=== PATIENT | male | born 1995 | race Hispanic/Latino ===

== ENCOUNTER 2022-12-24 04:38 | Emergency (ER) | payer BC, SELFPAY ==
--- OUTSIDE RECORDS SUMMARY | 2022-12-24 04:41 | XMS REPORT | Continuity of Care Document ---
:1995 Author Organization [facility] t Address [address] [facility] [address] [place] [id number] Care Team Providers Name Role Phone Connie Craft Primary Care Physician Dave Mcarthur MD Attending Clinician Constantino Burger Attending Clinician Unavailable CONNIE ABDULLAHI Attending Clinician Unavailable NATHALIE BISWAS Attending Clinician Unavailable Only, Ang Db Test Attending Clinician Unavailable Nathalie Biswas MD Attending Clinician Doctor Unassigned, [place] Attending Clinician Unavailable Jovana King Attending Clinician Unknown, Attending Attending Clinician Unavailable UNKNOWN, ATTENDING Attending Clinician Unavailable Jessy Moise RN Attending Clinician Unavailable ELSA RIGGINS Attending Clinician Unavailable Elsa Riggins MD Attending Clinician Shefali Cain RN Attending Clinician Unavailable ELSA RIGGINS Admitting Clinician Unavailable Payers Payer Name Policy Type Policy Number Effective Date Expiration Date S zayda [facility] [id number] 2020 00:00:00 Problems Condition Condition Condition Status Onset Resolution Last Treating Co mments Source Name Details Category Date Date Treatment Clinician Date No known No known Disease Unive rs active active ity of problems problems [facility] Allergies, Adverse Reactions, Alerts Allergy Allergy Status Severity Reaction(s) Onset Inactive Treating Comm ents Source Name Type Date Date Clinician NO KNOWN Drug Active Univers ALLERGIE Class [facility] Social History Social Habit Start Date Stop Date Quantity Comments Source Sexual orientation [facility] History of tobacco Occasional [facility] tobacco smoker Hospital History of Social 2022-05-07 2022-05-[address] function 00:00:00 00:00:00 Hospital Tobacco use and 2022-05-07 2022-05-07 Smokeless tobacco [facility] exposure 00:00:00 00:00:00 non-user Hospital Alcohol intake 2022-05-07 2022-05-07 Current drinker [facility] 00:00:00 00:00:00 of alcohol Hospital (finding) Exposure to 2021-01-16 2021-02-15 Not sure University of SARS-CoV-2 (event) 00:00:00 09:20:00 [facility] Sex Ass[birth year] At [birth year] [employer] [facility] 00:00:00 00:00:00 Hospital Smoking Status Start Date Stop Date Source Unknown if ever smoked [facility] Occasional tobacco smoker 2022-05-07 00:00:00 [facility] Light tobacco smoker 2020-10-19 00:00:00 [facility] Medications Ordered Filled Start Stop Current Ordering Indication Dosage Frequency Signature Comments Components Source Medication Medication Date Date Medication? Clinician (SIG) Name Name bev Yes [id number] 1{tbl} Q6H Take 1-2 Methodi en-codeine 3-[address] (TYLENOL 00:00: mouth Hospita WITH 00 every 6 l CODEINE #3) (six) 300-30 mg hours as per tablet needed for moderate pain .acute pain. naproxen Yes [id number] 500mg Take 1 Univers 500 mg 8-24 105 tablet by ity of tablet 00:00: mouth (two) Medical times Branch daily with meals. naproxen Yes [id number] 500mg Take 1 Univers 500 mg 8-24 105 tablet by ity of tablet 00:00: mouth (two) Medical times Branch daily with meals. naproxen Yes [id number] 500mg Take 1 Univers 500 mg 8-24 105 tablet by ity of tablet 00:00: mouth (two) Medical times Branch daily with meals. naproxen Yes [id number] 500mg Take 1 Univers 500 mg 8-24 105 tablet by ity of tablet 00:00: mouth 2 [place] (two) Medical times Branch daily with meals. naproxen Yes [id number] 500mg Take 1 Univers 500 mg 8-24 105 tablet by ity of tablet 00:00: mouth 2 [place] 00 (two) Medical times Branch daily with meals. naproxen Yes [id number] 500mg Take 1 Univers 500 mg 8-24 105 tablet by ity of tablet 00:00: mouth 2 [place] (two) Medical times Branch daily with meals. Immunizations Ordered Filled Date Status Comments Source Immunization Name Immunization Name TDAP 2020-10-19 Completed [facility] 00:00:00 [facility] TDAP 2020-10-19 Completed University 00:00:00 [facility] TDAP 2020-10-19 Completed [facility] 00:00:00 [facility] TDAP 2020-10-19 Completed [facility] 00:00:00 [facility] TDAP Unknown Completed [facility] TDAP Unknown Completed [facility] Vital Signs Vital Name Observation Time Observation Value Comments Source Systolic blood 2020-11-01 19:23:00 142 mm[Hg[facility] 2020-11-01 19:23:00 93 [facility]Hg[facility] 2020-11-01 19:23:00 72 /min [facility] Body temperature 2020-11-01 19:23:00 36.83 Magali [facility] Respiratory rate 2020-11-01 19:23:00 18 /min [facility] Body weight 2020-11-01 19:23:00 100.971 kg [facility] BMI 2020-11-01 19:23:00 33.85 kg/m2 [facility] Oxygen saturation in 2020-11-01 19:23:00 98 /min [facility] Arterial blood by [facility] Pulse oximetry Branch Systolic blood 2020-10-26 15:15:00 129 mm[Hg[facility] Di[facility] blood 2020-10-26 15:15:00 82 mm[Hg] Unive rsity of pressure [facility] Heart rate 2020-10-26 15:15:00 71 /min Universi ty of [facility] Body temperature 2020-10-26 15:15:00 36.72 Magali Univ ersity of [facility] Respiratory rate 2020-10-26 15:15:00 16 /min Univ ersity of [facility] Body height 2020-10-26 15:15:00 172.7 cm Universi ty of [place] [facility] Body weight 2020-10-26 15:15:00 100.699 kg Universi ty of [facility] BMI 2020-10-26 15:15:00 33.75 kg/m2 Universi ty [facility] Oxygen saturation in 2020-10-26 15:15:00 99 /min University of Arterial blood by [facility] mohini Pulse oximetry Branch Systolic blood 2020-05-17 14:24:00 145 mm[Hg] Univer sity of pressure [facility] Diastolic blood 2020-05-17 14:24:00 99 mm[Hg] Unive rsity of pressure [facility] Heart rate 2020-05-17 14:24:00 92 /min Universi ty [facility] Respiratory rate 2020-05-17 14:24:00 24 /min [facility] Oxygen saturation in 2020-05-17 14:24:00 99 /min University of Arterial blood by [facility] Pulse oximetry Branch Body temperature 2020-05-17 12:05:00 36.94 Magali Univ ersity [facility] Body weight 2020-05-17 12:05:00 102.059 kg Universi ty [facility] Body height 2022-05-07 13:24:00 175.3 cm [facility] Body weight 2022-05-07 13:24:00 99.791 kg [facility] BMI 2022-05-07 13:24:00 32.49 kg/m[facility] Systolic blood 2022-05-07 13:21:49 143 mm[Hg] [facility] pressure Diastolic blood 2022-05-07 13:21:49 101 mm[Hg] [facility] pressure Heart rate 2022-05-07 13:21:49 89 /min [facility] Body temperature 2022-05-07 13:21:49 36.5 Magali [facility] Respiratory rate 2022-05-07 13:21:49 18 /min [facility] Oxygen saturation in 2022-05-07 13:21:49 96 /min [facility] Arterial blood by Pulse oximetry Procedures Procedure Date / Time Performing Clinician Source Performed XR TIBIA FIBULA 2 VW 2022-05-07 13:43:47 McarthurDave [facility] LEFT XR ANKLE 3+ VW RIGHT 2020-10-26 15:43:00 Jovana Segura [facility] ASSIGNMENT OF BENEFITS 2020-10-19 15:05:02 Doctor Unassigned, Cassie [facility] Name [facility] Branch URINALYSIS 2020-05-17 13:46:00 Gilson [facility] ADC / LCC - DRUG SCREEN 2020-05-17 13:46:00 Gilson [facility] XR CHEST 1 VW 2020-05-17 12[facility]54[facility] 2020-05-17 12:26[facility]EL 2020-05-17 12:26:00 Elsa Riggins [facility] ([id number]) (ALB,T.PRO,BILI [facility] T,BU/BC,ALT,AST,ALK PHOS) BASIC METABOLIC PANEL 2020-05-17 12:26:00 Elsa Riggins [facility] (NA, K, CL, CO2, Medical Branch GLUCOSE, BUN, CREATININE, CA) CBC WITH DIFF 2020-05-17 12:26[facility] / INR 2020-05-17 12:26:00 Elsa Riggins [facility] D-DIMER 2020-05-17 12:26:[facility] ACTIVATED PARTIAL 2020-05-17 12:26:00 Gilson [facility] THRMPLAS LEXY [facility] Er N-TERMINAL PRO-BNP 2020-05-17 12:26:00 Elsa Riggins [facility] COVID-19 (ID NOW RAPID 2020-05-17 12:26:00 Elsa Riggins [facility] Plan of Care Planned Activity Planned Date Details Comments Source Future Scheduled 2022-12-17 COVID-19 VACCINE (#1) [facility] Test 18:32:55 [code = COVID-19 VACCINE (#1)] Future Scheduled 2022-12-17 Pneumococcal Vaccine: [facility] Test 18:32:55 Pediatrics (0 to 5 Years) and At-Risk Patients (6 to 64 Years) (1 - PCV) [code = Pneumococcal Vaccine: Pediatrics (0 to 5 Years) and At-Risk Patients (6 to 64 Years) (1 - PCV)] Future Scheduled 2022-12-17 Hepatitis C screening [facility] Test 18:32:55 (procedure) [code = 814557939] Future Scheduled 2022-12-17 INFLUENZA VACCINE (#1) [facility] Test 18:32:55 [code = INFLUENZA VACCINE (#1)] Future Scheduled 2022-12-17 RSV VACCINES > 60 YR [facility] Test 18:32:55 (1 - 1-dose 60+ series) [code = RSV VACCINES > 60 YR (1 - 1-dose 60+ series)] Encounters Start End Encounter Admission Attending Care Care Encounter Source Date/Time Date/Time Type Type Clinicians Facility Department ID 2021-12-01 Outpatient CHW CHW [id number] [facility] 12:47:07 0601 [facility] 2022-05-07 2022-05-07 Emergency Dave Mcarthur 1.2.840.1 [id number] Methodi 07:23:00 08:07:[address] 3.430.2.7 Hospit a .3.937073 l .8 2022-05-07 2022-05-07 Emergency DAVE MCARTHUR [facility] [id number] [place] 00:00:00 00:00:[address] 2022-05-07 2022-05-07 Travel 1.2.840.1 [id number] [id number] Methodi 00:00:00 00:00:[address] 3.430.2.7 0.2.7.3.698 Ho spita .3.383256 084.8 l .8 2021-08-03 2021-08-03 Outpatient DANNY Burger CHW [id number] [facility] 00:00:00 00:00:00 [facility] 2021-05-31 2021-05-31 Outpatient R [facility] [id number] Univers 08:00:00 08:00:00 CONNIE ity [facility] 2021-02-15 2021-02-15 Outpatient R [facility] [id number] Univers 09:00:00 09:36:15 NATHALIE zamudio [facility] 2021-02-15 2021-02-15 Laboratory Only, Ang Db Test [facility] 1.2.8 40.114 [id number] Univers 09:14:49 09:29:49 [facility] 350.1.13.10 ity of [place] 4.2.7.2.686 Fidel as MARCELL?BLEA [phone] [address] MEDICAL OFFICE [facility] 2020-11-01 2020-11-01 [facility] 1.2.840.114 [id number] Univers 14:00:17 14:20:17 Care [facility] 350.1.13.10 it y of [place] 4.2.7.2.686 Fidel as Marcell?Blea [phone] [address] Medical Office [facility] 2020-11-01 2020-11-01 Outpatient R [facility] [id number] Univers 14:00:00 14:00:00 NATHALIE [facility] 2020-10-28 2020-10-28 Patient Doctor CONOR 1.2.840.114 [id number] Univers 00:00:00 00:00:00 Secure Msg Unassigned, NETO 350.1.13.10 ity of [place] [facility] 4.2.7.2.686 Fidel as [phone] [address] 2020-10-26 2020-10-26 [facility] 1.2.506.763 [id number] Univers 10:24:59 23:59:00 Encounter [facility] 350.1.13.10 ity of [place] 4.2.7.2.686 Fidel as Marcell?Blea [phone] [facility] [address] Medical Office [facility] 2020-10-26 2020-10-26 Urgent Jovana Segura [facility] 1.2.840. 114 [id number] Univers 09:39:24 11:08:36 Care Unknown, Attending Health 350.1.13.10 ity of [place] 4.2.7.2.686 Fidel as Marcell?Blea [phone] [facility] [address] Medical Office [facility] 2020-10-26 2020-10-26 Outpatient R RICKI[facility] [id number] Univers 09:40:00 09:40:00 ATTENDING ity of [facility] 2020-10-26 2020-10-26 Patient Doctor CONOR 1.2.840.114 [id number] Univers 00:00:00 00:00:00 Secure Msg Unassigned, NTEO 350.1.13.10 ity of [place] [facility] 4.2.7.2.686 Fidel as [phone] [address] 2020-10-19 2020-10-19 Outpatient R [facility] [id number] Univers 10:00:00 10:00:00 CONNIE ity of [facility] 2020-10-19 2020-10-19 Orders Doctor CONOR 1.2.840.114 [id number] Univers 00:00:00 00:00:00 Only Unassigned, NETO 350.1.13.10 ity of [place] [facility] 4.2.7.2.686 Fidel as [phone] [address] 2020-05-18 2020-05-18 Letter CONOR Moise 1.2.840.114 [id number] Univers 00:00:00 00:00:00 (Out) Jessy DUQUE 350.1.13.10 it y of HOSPITAL 4.2.7.2.686 Fidel as [phone] [facility] [address] 2020-05-17 2020-05-17 Emergency X GILSON, [facility] ERT [id number] Univers 07:06:00 09:56:00 ELSA zamudio of [facility] 2020-05-17 2020-05-17 Emergency Gilson, KVNG 1.2.356.276 [id number] Univers 07:06:00 09:56:00 Elsa Valdez 350.1.13.10 i ty of [place] 4.2.7.2.686 [facility] [id number] [facility] 084 Branch 2020-05-17 2020-05-17 Telephone CONOR Cain 1.2.662.971 [id number] Univers 00:00:00 00:00:00 Shefali DUQUE 350.1.13.10 i ty of [facility] 4.[address].7.[address] [place] [address] [phone] [facility] [address] [place] Results Test Description Test Time Test Comments Results Result [facility] e Comments XR ANKLE 3+ VW 2020-10-04 No acute University of RIGHT 4 abnormality of the [facility] 18:05:25 right ankle. RL: Branch 1105 Patient name: FALLON SORTOOB: 1995 25 years EXAMINATION: XR ANKLE 3+ VW RIGHT Ordering Physician: JOVANA SEGURA CLINICAL HISTORY:twisted ankle while walking on Sunday. COMPARISON:None TECHNIQUE:Frontal, oblique, and lateral views of the right ankle performed. FINDINGS:Normal bone mineralization. No fracture or dislocation. No osseous lesions.No joint space narrowing. No joint effusion identified. Soft tissues arenormal. [facility], Radiant Results Inft User - 10/26/2020 1:06 PM CDT Patient name: FALLON SORTOOB: 1995 25 years EXAMINATION: XR ANKLE 3+ VW RIGHTOrdering Physician: JOVANA SEGURA CLINICAL HISTORY:twisted ankle while walking on Sunday. COMPARISON:NoneTECH NIQUE:Frontal, oblique, and lateral views of the right ankle performed.FINDINGS: Normal bone mineralization. No fracture or dislocation. No osseous lesions.No joint space narrowing. No joint effusion identified. Soft tissues arenormal. IMPRESSIONNo acute abnormality of the right ankle.RL: 1105 ALYSIS 2020-05-17 14:17:45 Test Item Value Reference Range Interpretation Comme nts APPEARANCE (test code = Clear Clear 6036607103) COLOR (test code = 1829857054) Yellow Yellow PH (test code = 6407228549) 4.8-8.0 SP GRAVITY (test code = 1.003-1.030 8430594711) GLU U QUAL (test code = Normal Normal 9684676844) BLOOD (test code = 7473864061) Negative Negative KETONES (test code = 8220212634) 20 mg/dL Negative A PROTEIN (test code = 2887-8) Negative Negative UROBILIN (test code = 4.0 mg/dL Normal A 6767663479) BILIRUBIN (test code = Negative Negative 4354859779) NITRITE (test code = 2561130622) Negative Negative LEUK CARLIE (test code = Negative Negative 1796520870) RBC/HPF (test code = 9554263896) <1 See_Comment [Automated message] The system which ge nerated this result transmit taryn reference range: 0 - 3 HP F. The reference range was not used to interpret th is result as normal/abnormal . WBC/HPF (test code = 2069370046) <1 See_Comment [Automated message] The system which ge nerated this result transmit taryn reference range: 0 - 5 HP F. The reference range was not used to interpret th is result as normal/abnormal . BACTERIA (test code = Negative Negative 9624319401) MUCOUS (test code = 0898678243) Slight Negative LPF A Lab Interpretation (test code = Abnormal 11332-8) [facility] / [facility] - DRUG SCREEN [id number] 14:14:50 Test Item Value Reference Range Interpretation Comments BENZO U (test code = Negative Negative 6893646590) SHANNEN U (test code = Negative Negative 2138055169) AMPHET (test code = Negative Negative 3010989416) THC (test code = Negative Negative 9409615191) METHADONE (test code = Negative Negative 7149811432) Meth U (test code = Negative Negative 1300650424) OPIATES (test code = Negative Negative 5570005781) Cocaine Metabolite (test Negative Negative code = 6812140423) PROPOXY (test code = Negative Negative 9084461893) Tric U (test code = Negative Negative 8731203092) PCP (test code = Negative Negative 9397151822) OXYCOD (test code = Negative Negative 1245379386) JANET (test code = JANET) Urine Drug Cutoff Ranges Benzodiazepines: ? ? 150 ng/mLBarbiturates: ?200 ng/mLAmphetamine: ? 500 ng/mLCannabinoids: ?50 ?ng/mLMethadone: ? 200 ng/mLMethamphetamine: ? ? 500 ng/mL Opiates: ? 100 ng/mL or 2000 ng/mLCocaine: ? 150 ng/mLPropoxyphene: ?300 ng/mLTricyclics: ?300 ng/mLOxycodone: ? 100 ng/mLPCP: ? 25 ?ng/mL The results are to be used only for medical (i.e., treatment) purposes. Unconfirmed screening results must not be used for non-medical purposes (e.g., employment testing, legal testing). Lab Interpretation (test Normal code = 48323-5) [facility] 1 [id number] 13:46:26 No acute cardiopulmonary abnormality. Preliminary Report Dictated by Resident: Taqueria Moyer MD., have reviewed this study and agree with the abovereport.EXAM: XR CHEST 1 VW 05/17/2020 7:35 AM HISTORY: 24 years-old Female with dyspnea . TECHNIQUE: Portable AP view of the chest. COMPARISON: None. FINDINGS: Cardiomediastinal: The cardiomediastinal silhouette is unremarkable. Lungs and pleura: The lungs are clear. No focal consolidation,pneumothorax, or pleural effusion is seen. Musculoskeletal: No acute skeletal abnormality. [facility], Radiant Results Inft User - 05/17/2020 8:47 AM CDTEXAM: XR CHEST 1 VW 05/17/2020 7:35 AMHISTORY: 24 years-old Female with dyspnea .TECHNIQUE: Portable AP view of the chest. COMPARISON: None.FINDINGS: Cardiomediastinal: The cardiomediastinal silhouette is unremarkable.Lungs and pleura: The lungs are clear. No focal consolidation,pneumothorax, or pleural effusion is seen.Musculoskeletal: No acute skeletal abnormality.IMPRESSIONNo acute cardiopulmonary a bnormality.Preliminary Report Dictated by Resident: Memo Slade, Taqueria Alford MD., have reviewed this study and agree with the abovereport.[id number] 13:45:01 Test Item Value Reference Interpretation Comments Range D-DIMER (test code = <0.27 See_Comment [Autom ated 2275672547) message] The system which generated this result transmitted reference range : <0.41 ?g/mL (FEU). The reference range was not used to interpret this result as normal/abnormal . JANET (test code = This test may be JANET) used in conjunction with a clinical pretest probability (PTP) assessment model to exclude venous thromboembolism (VTE) in patients suspected of deep venous thrombosis (DVT) and pulmonary embolism (PE) A D-Dimer value less than 0.50 ?g/ml (FEU) has a negative predicative value of 96 to 100% (95% CI)and 97 to 100% (95% CI) as an aid in the diagnosis of deep vein thrombosis (DVT) and pulmonary embolism when there is low or moderate pretest probability of PE or DVT. D-Dimer values are expressed in initial fibrinogen equivalent units (FEU)" The assay results should be used with other information, including the clinical context, in forming a diagnosis. Lab Interpretation Normal (test code = 94627-5) [facility] Hospital[facility] [id number] 13:14:24 Test Item Value Reference Range Interpretation Comments TROPONIN I (test 0.017 ng/mL See_Comment [Automated code = 0315828556) message] The system which generated this result transmitted reference range : <=0.034. The reference range was not used to interpret this result as normal/abnormal . JANET (test code = Equal or Less than JANET) 0.034 ng/ml---Normal ?Note: Cardiac troponin begins to rise 3-4 hours after the onset of ischemia. Repeat in 4-6 hours if the sample was drawn within 3-4 hours of the onset of the symptom and found normal. Between 0.035 and 0.120 ng/mL--- Borderline. Questionable myocardial injury or necrosis ? ?Note: Serial measurement may be necessary to confirm or exclude the diagnosis of myocardial injury or necrosis; Clinical correlation (symptoms, EKGs, imaging studies, and others) required; Repeat in 4-6 hours if clinically indicated. ? Equal or Higher than 0.121 ng/mL---Abnormal. Myocardial Injury or Necrosis Likely ? Biotin has been reported to cause a negative bias, interpret results relative to patient's use of biotin. ? Lab Interpretation Normal (test code = 45249-9) [facility]AL [id number] 13:11:26 Test Item Value Reference Range Interpretation Comments NT-proBNP (test code 31 pg/mL See_Comment [Autom ated = 8150847511) message] The system which generated this result transmitted reference range : <=125. The reference range was not used to interpret this result as normal/abnormal . JANET (test code = JANET) Biotin has been reported to cause a negative bias, interpret results relative to patient's use of biotin. Lab Interpretation Normal (test code = 12144-9) [facility] (ID NOW RAPID TESTING)2020-05-17 13:08:44 Test Item Value Reference Range Interpretation Comments SARS-CoV-2 Rapid ID NOW Not Detected Not Detected (test code = 94336-3) JANET (test code = JANET) ID NOW COVID-19 Assay is an isothermal nucleic acid amplification test intended for the qualitative detection of nucleic acid from SARS-CoV-2 viral RNA in nasopharyngeal (LAN MANAGER) specimens. It is used under Emergency Use Authorization (EUA) by FDA. The limit of detection (LOD) of the assay is 125 Genome Equivalents/mL. A positive result is indicative of the presence of SARS-CoV-2 RNA. ?Clinical correlation with patient history and other diagnostic information is necessary to determine patient infection status. A negative (Not Detected) result does not preclude SARS-CoV-2 infection. In patients with clinical symptoms and other tests that are consistent with SARS-CoV-2 infection, negative results should be treated as presumptive negative and a new specimen should be tested with alternative PCR molecular test. Invalid: Please collect a new specimen for repeat patient testing if clinically indicated. Lab Interpretation Normal (test code = 84640-3) [facility] Met[facility] (NA, K, CL, CO2, GLUCOSE, BUN, CREATININE, CA)2020-05-17 13:02:47 Test Item Value Reference Range Interpretation Comments NA (test code = 137 mmol/L 135-145 2280424598) K (test code = 3.2 mmol/L 3.5-5.0 L 4443611665) CL (test code = 100 mmol/L 98-108 0364025031) CO2 TOTAL (test code = 26 mmol/L 23-31 7460183572) AGAP (test code = 2-16 8611376440) BUN (test code = 9 mg/dL 7-23 4575493187) GLUCOSE (test code = 124 mg/dL 70-110 H [id number]) CREATININE (test code = 0.67 mg/dL 0.50-1.04 5108679813) CALCIUM (test code = 8.7 mg/dL 8.6-10.6 8430203238) eGFR Calculation mL/min/1.73m2 (Non-) (test code = 4731648754) eGFR Calculation mL/min/1.73m2 () (test code = 1854828197) JANET (test code = JANET) Association of Glomerular Filtration Rate (GFR) and Staging of Kidney Disease* + --+ --+ ------+| GFR (mL/min/1.73 m2) ?| With Kidney Damage ?| ?Without Kidney Damage+ --------+ --------+ +| ?>90 ?| ?Stage one ?| ? Normal ?+ ---+ ---+ -------+| ?60-89 ?| ?Stage two ?| ? Decreased GFR ? + --+ --+ ------+| ?30-59 ?| ?Stage three ?| ? Stage three ? + --+ --+ ------+| ?15-29 ?| ?Stage four ? | ? Stage four ?+ ---+ ---+ -------+| ?<15 (or dialysis) ? ?| ?Stage five ? | ? Stage five ?+ ---+ ---+ -------+ *Each stage assumes the associated GFR level has been in effect for at least three months. ?Stages 1 to 5, with or without kidney disease, indicate chronic kidney disease. Notes: Determination of stages one and two (with eGFR >59mL/min/1.73 m2) requires estimation of kidney damage for at least three months as defined by structural or functional abnormalities of the kidney, manifested by either:Pathological abnormalities or Markers of kidney damage (including abnormalities in the composition of the blood or urine or abnormalities in imaging tests). Lab Interpretation Abnormal (test code = 24794-9) [facility] (ALB, T.PRO, BILI T, BU/BC, ALT, AST, ALK PHOS)2020-05-17 13:02:22 Test Item Value Reference Range Interpretation Comments TOTAL BILI (test code = 9008597659) 1.0 mg/dL 0.1-1.1 BILI UNCON (test code = 8811074503) 1.0 mg/dL 0.1-1.1 BILI CONJ (test code = 2405176552) 0.0 mg/dL 0.0-0.3 T PROTEIN (test code = 5752528611) 7.8 g/dL 6.3-8.2 ALBUMIN (test code = 6956763780) 4.8 g/dL 3.5-5.0 ALK PHOS (test code = 0193122791) 104 U/L 34-122 ALTv (test code = 1742-6) 51 U/L 5-35 H AST(SGOT) (test code = 2770234874) 24 U/L 13-40 Lab Interpretation (test code = Abnormal 03423-6) [facility]58[facility]45 Test Item Value Reference Range Interpretation Comments APTT Patient (test See_Comment [Automat ed code = 3173-2) message] The system which generated this result transmitted reference range : 23 - 38 Seconds . The reference range was not used to interpr et this result as normal/abnormal . JANET (test code = JANET) The [facility] patient population mean normal value for aPTT is 30 seconds. Lab Interpretation Normal (test code = 34160-3) [facility] / [id number] 12:56:43 Test Item Value Reference Range Interpretation Comments PROTIME PATIENT (test See_Comment [Auto mated message] code = 5964-2) The system wh ich generated this result transmitted ref erence range: 12.0 - 1 4.7 Seconds. The re ference range was not u sed to interpret this result as normal/abnor mal. INR (test code = 6301-6) Nor mal INR <1.1; Warfarin Therap eutic range 2.0 to 3. 0 or 2.5 to 3.5, dep ending upon the indica tions. Lab Interpretation (test Normal code = 22682-8) [facility] with [id number] 12:43:26 Test Item Value Reference Range Interpretation Comments WBC (test code = See_Comment H [Automated 6690-2) message] The sy stem which generated this result transmitted reference range : 4.30 - 11.10 10*3/?L. The reference range was not used to interpret this result as normal/abnormal . RBC (test code = See_Comment H [Automated 789-8) message] The sy stem which generated this result transmitted reference range : 3.93 - 5.25 10*6/?L. The reference range was not used to interpret this result as normal/abnormal . HGB (test code = 15.7 g/dL 11.6-15.0 H 718-7) HCT (test code = 45.9 % 35.7-45.2 H 4544-3) MCV (test code = 84.1 fL 80.6-95.5 787-2) MCH (test code = 28.8 pg 25.9-32.8 785-6) MCHC (test code = 34.2 g/dL 31.6-35.1 786-4) RDW-SD (test code = 36.5 fL 39.0-49.9 L 27052-4) RDW-CV (test code = 12.1 % 12.0-15.5 788-0) PLT (test code = See_Comment [Automated 777-3) message] The sy stem which generated this result transmitted reference range : 166 - 358 10*3/ ?L. The reference r jose eduardo was not used to interpret this result as normal/abnormal . MPV (test code = 9.9 fL 9.5-12.9 79946-2) NRBC/100 WBC (test See_Comment [Automat ed code = 9929470451) message] The system which generated this result transmitted reference range : 0.0 - 10.0 /100 WBCs. The refer ence range was not u sed to interpret th is result as normal/abnormal . NRBC x10^3 (test code <0.01 See_Comment [Auto mated = 2837806329) message] The s ystem which generated this result transmitted reference range : 10*3/?L. The reference range was not used to interpret this result as normal/abnormal . GRAN MAT (NEUT) % 76.3 % (test code = 770-8) IMM GRAN % (test code 0.50 % = 6867126817) LYMPH % (test code = 13.0 % 736-9) MONO % (test code = 9.9 % 5905-5) EOS % (test code = 0.1 % 713-8) BASO % (test code = 0.2 % 706-2) GRAN MAT x10^3(ANC) 9.77 10*3/uL 1.88-7.09 H (test code = 0143001550) IMM GRAN x10^3 (test 0.06 10*3/uL 0.00-0.06 code = 4938680067) LYMPH x10^3 (test code 1.67 10*3/uL 1.32-3.29 = 731-0) MONO x10^3 (test code 1.27 10*3/uL 0.33-0.92 H = 742-7) EOS x10^3 (test code = <0.03 0.03-0.39 L 711-2) BASO x10^3 (test code 0.03 10*3/uL 0.01-0.07 = 704-7) Lab Interpretation Abnormal (test code = 01462-5) [facility]
[2022-12-24] MEDS ORDERED: MORPHINE 4 MG/ML SYR ONE (05:33)
[2022-12-24] MEDS ORDERED: NA CHLORIDE 0.9% 1,000 ML ONE (05:33)
[2022-12-24] MEDS ORDERED: FAMOTIDINE 20 MG/2 ML VIAL IV ONE (05:33)
[2022-12-24 05:44] LABS: Absolute Lymphocytes (CBC) 1.7 K/uL (0.7-4.9); Hematocrit 42.9 % (39.6-49.0); Lymphocytes % 16.7 % (15.3-44.8); MPV 8.3 fL (7.6-11.3); Platelets 272 thou/uL (152-406); RBC Red Blood Cell Count 5.05 M/uL (4.33-5.43)
[2022-12-24 05:59] LABS: Albumin 3.5 g/dL (3.4-5.0); Bilirubin Total 0.5 mg/dL (0.2-1.0); Potassium 3.3 mEq/L (3.5-5.1); Protein, Total 7.1 g/dL (6.4-8.2)
[2022-12-24 06:17] LABS: Specific Gravity 1.013 (1.005-1.030); Urine Bilirubin NEGATIVE (Negative); Urine Blood Negative (Negative); Urine Clarity Clear (Clear); Urine Color Light-Yellow (Yellow); Urine Glucose NEGATIVE (Negative); Urine Protein NEGATIVE (Negative); Urine Urobilinogen Normal (Normal); Urine pH 5.5 (5.0-7.0)
--- NOTE | 2022-12-24 06:53 | RAD REPORT ---
EXAM DESCRIPTION: CTAbdomen Pelvis W Contrast - 12/24/2022 6:44 am CLINICAL HISTORY: ABD PAIN COMPARISON: No comparisons TECHNIQUE: CT of the abdomen and pelvis was performed. All CT scans are performed using dose optimization technique as appropriate and may include automated exposure control or mA/KV adjustment according to patient size. FINDINGS: Lower chest: No acute abnormality. Liver: No acute abnormality or suspicious lesions. Biliary: No biliary ductal dilatation. Stomach: No significant focal abnormality. Duodenum: No significant focal abnormality. Pancreas: No significant abnormality. Spleen: No significant abnormality. Adrenal: No suspicious lesions. Kidney/ureter: No hydronephrosis. No renal calculi. Retroperitoneum: No retroperitoneal adenopathy. Vascular: No aneurysm. Bowel: No significant focal abnormality. Normal appendix. Peritoneum: No ascites or free air. Tiny fat containing umbilical hernia. Bladder: Grossly unremarkable. Reproductive: No adnexal masses. Bones: No acute fracture. Other: n/a IMPRESSION: No acute intra-abdominal or pelvic finding. Normal appendix.
--- NOTE | 2022-12-24 07:00 | ER ---
Nurse's Notes [facility] Name: Jason Gasca Age: 27 yrs Sex: Male : 1995 Arrival Date: 12/24/2022 Time: 04:38 Bed 6 Private MD: Diagnosis: Lower abdominal pain, unspecified Presentation: 12/24 04:51 Chief complaint: Patient states: c/o abdominal pain and fever intermittently for the la4 past 2 days. Coronavirus screen: Vaccine status: Patient reports being unvaccinated. Ebola Screen: Patient denies travel to an Ebola-affected area in the 21 days before illness onset. No symptoms or risks identified at this time. Initial Sepsis Screen: Does the patient meet any 2 criteria? HR > 90 bpm. Does the patient have a suspected source of infection? No. Patient's initial sepsis screen is negative. Risk Assessment: Do you want to hurt yourself or someone else? Patient reports no desire to harm self or others. Onset of symptoms was December 21, 2022. 04:51 Method Of Arrival: Ambulatory la4 04:51 Acuity: LISA 3 la4 Triage Assessment: 04:59 General: Appears in no apparent distress. Behavior is calm, cooperative, appropriate la4 for age. Pain: Denies pain. Complains of pain in suprapubic area, right lower quadrant and left lower quadrant Pain currently is 8 out of 10 on a pain scale. at worst was 10 out of 10 on a pain scale. Quality of pain is described as aching, sharp. Cardiovascular: No deficits noted. Respiratory: No deficits noted. Airway is patent Respiratory effort is even, unlabored, Respiratory pattern is regular, symmetrical, Breath sounds are clear bilaterally. GI: Abdomen is flat, non-distended, Bowel sounds present X 4 quads. Historical: - Allergies: 04:58 No Known Allergies; la4 - Immunization history:: Adult Immunizations up to date, Client reports having NOT received the Covid vaccine. Flu vaccine is not up to date. Patient has never been vaccinated. - Social history:: Smoking status: Patient reports the use of cigarette tobacco products, denies chronic smoking, but will smoke occasionally, Patient/guardian denies using alcohol, street drugs. - Code Status:: Full code. Screenin:27 [facility] ED Fall Risk Assessment (Adult) Score/Fall Risk Level 0 - 2 = Low Risk la4 Oriented to surroundings, Maintained a safe environment, Hourly rounding (assess needs \T\ fall precautionary measures) done. Abuse screen: Denies threats or abuse. Denies injuries from another. Nutritional screening: No deficits noted. Tuberculosis screening: No symptoms or risk factors identified. Assessment: 05:04 General: Appears uncomfortable, Behavior is calm, cooperative, appropriate for age. la4 Neuro: No deficits noted. [place] Agitation-Sedation Scale (RASS): 0 - Alert and Calm Level of Consciousness is awake, alert, obeys commands, Oriented to person, place, time, situation, Appropriate for age. GI: Abd is soft X 4 quads Abd is non tender. 06:17 General: Second IV line placed for CT w/ IV contrast to the left forearm. 20 G PIV la4 remains in the left hand at this time and remains functional. 20 G placed to the left forearm w/o complications. 07:07 Reassessment: Patient appears in no apparent distress at this time. No changes from ld1 previously documented assessment. Patient and/or family updated on plan of care and expected duration. Pain level reassessed. Vital Signs: 04:51 BP 130 / 93; Pulse 90; Resp 18; Pulse Ox 98% on R/A; Weight 99.79 kg; Height 5 ft. 9 la4 in. ; Pain 8/10; 04:51 BP 130 / 93; Pulse 90; Resp 18; Pulse Ox 98% on R/A; Weight 99.79 kg; Height 5 ft. 9 la4 in. ; Pain 8/10; 06:15 BP 127 / 62; Pulse 82; Resp 16; Pulse Ox 98% on R/A; la4 07:07 BP 132 / 94; Pulse 86; Resp 18; Pulse Ox 100% on R/A; ld1 04:51 Body Mass Index 32.49 (99.79 kg, 175.26 cm) la4 04:51 Pain Scale: Adult la4 04:51 Pain Scale: Adult la4 [place] Coma Score: 04:51 Eye Response: spontaneous(4). Motor Response: obeys commands(6). Verbal Response: la4 oriented(5). Total: 15. 06:15 Eye Response: spontaneous(4). Motor Response: obeys commands(6). Verbal Response: la4 oriented(5). Total: 15. ED Course: 04:41 Patient arrived in ED. ag3 04:46 Thang Ford DO is Attending Physician. ms3 04:51 Stefanie San, RN is Primary Nurse. la4 04:58 Triage completed. la4 05:16 CBC with Diff Sent. la4 05:16 CMP Sent. la4 05:16 Lipase Sent. la4 05:16 Inserted saline lock: 20 gauge in left hand, using aseptic technique. la4 05:27 Patient has correct armband on for positive identification. Bed in low position. Call la4 light in reach. Side rails up X2. Provided Education on: plan of care. Pulse ox on. NIBP on. 06:17 Inserted saline lock: 20 gauge in left forearm, using aseptic technique. la4 06:39 CT Abd/Pelvis - IV Contrast Only Sent. la4 06:46 CT Abd/Pelvis - IV Contrast Only In Process Unspecified. EDMS 07:08 No provider procedures requiring assistance completed. IV discontinued, intact, ld1 bleeding controlled, No redness/swelling at site. 07:08 Arm band placed on right wrist. ld1 Administered Medications: 05:26 Drug: NS 0.9% IV 1000 ml IV at 1 bolus Per protocol; 1000 mL bolus Route: IV; Rate: 1 la4 bolus; Infused Over: 30 mins; Site: left hand; Delivery: Primary tubing; 05:26 Drug: Famotidine IVP 20 mg IVP once; dilute with 10 mL 0.9% NaCl; give over 2 minutes la4 Route: IVP; Rate: bolus; Infused Over: 2 mins; Site: left hand; 05:26 Drug: morphine IVP or IV 4 mg IVP once over 4 mins Route: IVP; Rate: bolus; Infused la4 Over: 4 mins; Site: left hand; Medication: 07:08 VIS not applicable for this client. ld1 Outcome: 06:59 Discharge ordered by . ms3 07:08 Discharged to home ambulatory, with family, ld1 07:08 Condition: stable 07:08 Discharge instructions given to patient, family, Instructed on discharge instructions, follow up and referral plans. Demonstrated understanding of instructions, follow-up care, 07:08 Patient left the ED. ld1 Signatures: Dispatcher [employer] EDMN Mireya Oreilly ag3 Thang Ford DO DO ms3 Herminia Ford, RN RN ld1 Stefanie San, RN RN la4
--- NOTE | 2022-12-24 07:00 | EDPHYS ---
Physician Documentation [facility] Name: Jason Gasca Age: 27 yrs Sex: Male : 1995 Arrival Date: 12/24/2022 Time: 04:38 Bed 6 Private MD: ED Physician Thang Ford HPI: 12/24 05:06 This 27 yrs old Male presents to ER via Ambulatory with complaints of ms3 Abdominal Pain. 05:06 27-year-old male with no past medical history presents for generalized abdominal pain ms3 that has been ongoing for 2 days. Patient rates the pain an 8/10. Patient endorses fever, headache, diarrhea. Patient denies nausea, vomiting, or sick contacts.. Historical: - Allergies: 04:58 No Known Allergies; la4 - Immunization history:: Adult Immunizations up to date, Client reports having NOT received the Covid vaccine. Flu vaccine is not up to date. Patient has never been vaccinated. - Social history:: Smoking status: Patient reports the use of cigarette tobacco products, denies chronic smoking, but will smoke occasionally, Patient/guardian denies using alcohol, street drugs. - Code Status:: Full code. ROS: 05:06 Constitutional: Negative for fever, and chills. Neck: Negative for injury, pain, and ms3 swelling, Cardiovascular: Negative for chest pain, and palpitations. Respiratory: Negative for shortness of breath, cough, wheezing, and pleuritic chest pain, 05:06 MS/Extremity: Negative for injury and deformity, Skin: Negative for injury, rash, and discoloration, 05:06 Abdomen/GI: Positive for abdominal pain, 05:06 All other systems are negative, Exam: 05:06 Constitutional: This is a well developed, well nourished patient who is awake, alert, ms3 and in no acute distress. Head/Face: Normocephalic, atraumatic. Neck: Trachea midline, no cervical lymphadenopathy. Supple, full range of motion without nuchal rigidity, or vertebral point tenderness. No Meningismus. Chest/axilla: Normal chest wall appearance and motion. Nontender with no deformity. Cardiovascular: Regular rate and rhythm with a normal S1 and S2. No gallops, murmurs, or rubs. Normal PMI, no JVD. No pulse deficits. Respiratory: Lungs have equal breath sounds bilaterally, clear to auscultation and percussion. No rales, rhonchi or wheezes noted. No increased work of breathing, no retractions or nasal flaring. 05:06 Abdomen/GI: Inspection: abdomen appears normal, Bowel sounds: normal, Palpation: mild abdominal tenderness, in the left upper quadrant and right lower quadrant, Vital Signs: 04:51 BP 130 / 93; Pulse 90; Resp 18; Pulse Ox 98% on R/A; Weight 99.79 kg; Height 5 ft. 9 la4 in. ; Pain 8/10; 04:51 BP 130 / 93; Pulse 90; Resp 18; Pulse Ox 98% on R/A; Weight 99.79 kg; Height 5 ft. 9 la4 in. ; Pain 8/10; 06:15 BP 127 / 62; Pulse 82; Resp 16; Pulse Ox 98% on R/A; la4 07:07 BP 132 / 94; Pulse 86; Resp 18; Pulse Ox 100% on R/A; ld1 04:51 Body Mass Index 32.49 (99.79 kg, 175.26 cm) la4 04:51 Pain Scale: Adult la4 04:51 Pain Scale: Adult la4 [place] Coma Score: 04:51 Eye Response: spontaneous(4). Motor Response: obeys commands(6). Verbal Response: la4 oriented(5). Total: 15. 06:15 Eye Response: spontaneous(4). Motor Response: obeys commands(6). Verbal Response: la4 oriented(5). Total: 15. MDM: 04:51 Patient medically screened. ms3 05:06 Differential diagnosis: appendicitis, bowel obstruction, diverticulitis, non-specific ms3 abd pain. 07:14 Data reviewed: vital signs, nurses notes, and as a result, I will discharge patient. I ms3 considered the following discharge prescriptions or medication management in the emergency department Medications were administered in the Emergency Department. See MAR. Historians other than the Patient:. Counseling: I had a detailed discussion with the patient and/or guardian regarding the historical points, exam findings, and any diagnostic results supporting the discharge/admit diagnosis, lab results, radiology results, the need for outpatient follow up, to return to the emergency department if symptoms worsen or persist or if there are any questions or concerns that arise at home. Response to treatment: the patient's symptoms have markedly improved after treatment, and as a result, I will discharge patient. Special discussion: Based on the patient's Hx, exam, and Dx evaluation, there is no indication for emergent surgery or inpatient Tx. It is understood by the patient/guardian that if the Sx's persist or worsen they need to return immediately for re-evaluation. ED course: Discussed labs, CT scan with patient and his . Patient to follow-up with primary care physician in 2 to 3 days. Patient understands and agrees with plan. All questions were answered. Return precautions discussed include worsening symptoms, or any other concerns. On reevaluation patient is alert and orient x4, no apparent distress, nontoxic-appearing, ambulatory in emergency room, speaking full sentences. 12/24 04:51 Order name: CBC with Diff; Complete Time: 06:06 ms3 12/24 04:51 Order name: CMP; Complete Time: 06:06 ms3 12/24 04:51 Order name: Lipase; Complete Time: 06:06 ms3 12/24 04:51 Order name: Urinalysis w/ reflexes; Complete Time: 06:18 ms3 12/24 04:51 Order name: CT Abd/Pelvis - IV Contrast Only; Complete Time: 06:57 ms3 12/24 04:52 Order name: IV Saline Lock; Complete Time: 05:16 ms3 12/24 04:52 Order name: Labs collected and sent; Complete Time: 05:16 ms3 Administered Medications: 05:26 Drug: NS 0.9% IV 1000 ml IV at 1 bolus Per protocol; 1000 mL bolus Route: IV; Rate: 1 la4 bolus; Infused Over: 30 mins; Site: left hand; Delivery: Primary tubing; 05:26 Drug: Famotidine IVP 20 mg IVP once; dilute with 10 mL 0.9% NaCl; give over 2 minutes la4 Route: IVP; Rate: bolus; Infused Over: 2 mins; Site: left hand; 05:26 Drug: morphine IVP or IV 4 mg IVP once over 4 mins Route: IVP; Rate: bolus; Infused la4 Over: 4 mins; Site: left hand; Disposition Summary: 12/24/22 06:59 Discharge Ordered Notes: Location: Home ms3 Condition: Stable ms3 Diagnosis - Lower abdominal pain, unspecified ms3 Discharge Instructions: - Discharge Summary Sheet ms3 - Abdominal Pain, Adult ms3 Forms: - Medication Reconciliation Form ms3 - Thank You Letter ms3 - Antibiotic Education ms3 - Prescription Opioid Use ms3 - Patient Portal Instructions ms3 - Leadership Thank You Letter ms3 Signatures: Dispatcher [employer] Thang Gutierrez DO DO ms3 Stefanie San, RN RN la4
== END 2022-12-24 07:08 | disposition home or self-care (01) ==
LOC: ER 04:38
DX: R10.84 Generalized abdominal pain (principal)
CPT/HCPCS: 36415; 74177; 80053; 81003; 83690; 85025; 96374; 96375; 99284; J7030; Q9967

== ENCOUNTER 2023-02-15 01:05 | Emergency (ER) | payer SELFPAY ==
--- NOTE | 2023-02-15 01:37 | EDPHYS ---
Physician Documentation [facility] Name: Jason Gasca Age: 27 yrs Sex: Male : 1995 Arrival Date: 02/15/2023 Time: 01:05 Bed 12 Private MD: ED Physician Francesco Brambila HPI: 02/15 01:12 This 27 yrs old Male presents to ER via Unassigned with complaints of FLASH sp4 BURN TO EYES WHILE AT WORK.. 01:33 27-year-old male presents with bilateral eye pain redness irritation secondary to arc sp4 WELDING burn, patient reports burn was done yesterday but the pain in the eyes intensified overnight. . Historical: - Allergies: : No Known Allergies; lg3 - Home Meds: : None [Active]; lg3 - PMHx: : None; lg3 - PSHx: : None; lg3 - Immunization history:: Adult Immunizations up to date, Client reports having NOT received the Covid vaccine. Flu vaccine is not up to date. - Social history:: Smoking status: Patient reports the use of cigarette tobacco products, denies chronic smoking, but will smoke occasionally, Patient uses alcohol, occasionally. - Family history:: not pertinent. ROS: 01:33 Constitutional: Negative for fever, chills, and weight loss, positive bilateral eye sp4 pain, bilateral eye irritation, positive bilateral eye redness Eyes: Positive pain, and the redness 01:33 All other systems are negative, Exam: 01:33 Constitutional: This is a well developed, well nourished patient who is awake, alert, sp4 and in no acute distress. Head/Face: Normocephalic, atraumatic. Eyes: Pupils equal round and reactive to light, extra-ocular motions intact. Lids and lashes normal. Conjunctiva is injected bilaterally, there is right lateral conjunctival abrasion, there is left medial conjunctival abrasion, corneal abrasions or ulcers. No purulent discharge ENT: Nares patent. No nasal discharge, no septal abnormalities noted. Tympanic membranes are normal and external auditory canals are clear. Oropharynx with no redness, swelling, or masses, exudates, or evidence of obstruction, uvula midline. Mucous membranes moist. Neck: Trachea midline, no thyromegaly or masses palpated, and no cervical lymphadenopathy. Supple, full range of motion without nuchal rigidity, or vertebral point tenderness. Chest/axilla: Normal chest wall appearance and motion. Nontender with no deformity. No lesions are appreciated. Cardiovascular: Regular rate and rhythm with a normal S1 and S2. No gallops, murmurs, or rubs. Normal PMI, no JVD. No pulse deficits. Respiratory: Lungs have equal breath sounds bilaterally, clear to auscultation and percussion. No rales, rhonchi or wheezes noted. No increased work of breathing, no retractions or nasal flaring. Abdomen/GI: Soft, non-tender, with normal bowel sounds. No distension or tympany. No guarding or rebound. No evidence of tenderness throughout. Back: No spinal tenderness. No costovertebral tenderness. Skin: Warm, dry with normal turgor. Normal color with no rashes, no lesions, and no evidence of cellulitis. MS/ Extremity: Pulses equal, no cyanosis. Neurovascular intact. Full, normal range of motion. Neuro: Awake and alert, GCS 15, oriented to person, place, time, and situation. Cranial nerves II-XII grossly intact. Motor strength 5/5 in all extremities. Sensory grossly intact. Psych: Awake, alert, with orientation to person, place and time. Behavior, mood, and affect are within normal limits Vital Signs: 01:20 BP 142 / 84; Pulse 81; Resp 17 S; Temp 98.4(TE); Pulse Ox 100% on R/A; Weight 101.15 kg lg3 (R); Height 5 ft. 10 in. (R); 01:20 Body Mass Index 32.00 (101.15 kg, 177.8 cm) lg3 MDM: 01:22 Patient medically screened. sp4 01:33 Differential Diagnosis Conjunctivitis, iritis, ultraviolet photokeratitis. Data sp4 reviewed: vital signs, nurses notes. ED course: Will provide tobramycin ophthalmic solution prescription for lubrication. 02/15 01: Order name: Eye Tray; Complete Time: sp4 02/15 01: Order name: Fluoresene Opth strip; Complete Time: sp4 Administered Medications: 01:28 Drug: Tetracaine Ophthalmic Drops 0.5 % 1 drops Ophthalmic once Route: Ophthalmic; lg3 Site: both eyes; Disposition Summary: 02/15/23 01:36 Discharge Ordered Notes: Location: Home sp4 Problem: new sp4 Symptoms: have improved sp4 Condition: Stable sp4 Diagnosis - Photokeratitis, bilateral sp4 Followup: sp4 - With: Mikey Coffman MD - When: 2 - 3 days - Reason: Recheck today's complaints Discharge Instructions: - Discharge Summary Sheet sp4 - Ultraviolet Keratitis sp4 Forms: - Patient Portal Instructions sp4 Prescriptions: - tobramycin 0.3 % Ophthalmic drops - instill 2 drop OPHTHALMIC route every 4 hours for 5 days for 5 days; 5 sp4 milliliter; Refills: 0, Product Selection Permitted Signatures: Yazmin Bergman RN RN lg3 Francesco Brambila MD MD sp4
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
[2023-02-15] MEDS ORDERED: FLUORESCEIN SODIUM 1 MG/WRAP ONE (01:40)
[2023-02-15] MEDS ORDERED: TETRACAINE HCL 0.5% 5 ML OPTH ONE (01:41)
[2023-02-15 05:16] VITALS: BP 142/84; TEMP 98.4; O2SAT 100
== END 2023-02-15 01:51 | disposition home or self-care (01) ==
LOC: ER 01:05
DX: H16.133 Photokeratitis, bilateral (principal)
CPT/HCPCS: 99284